=== PATIENT | female | born 1965 | race Caucasian/White ===

== ENCOUNTER 2016-09-21 20:00 | Emergency (ER) | payer BC ==
[~2016-09-21] VITALS: Ht 170.2 cm; Wt 74.8 kg
[~2016-09-21 20:00] MED LIST: FLUO20CA36 PO; IBUP-1482 PO
--- NOTE | 2016-09-21 20:15 | NUR ---
PT BB SELF; AMBULATORY TO ER BED 6 C/O NAUSEA, VOMIT, "VERTIGO" SINCE 1500. PT AOX3 RR EVEN AND UNLABORED. NO SOB NOTED. NAD NOTED. NO NVD AT THIS TIME. PT NOT DIAPHORETIC. PT WAITING FOR MD KIMBROUGH.
--- NOTE | 2016-09-21 20:16 | NUR ---
DR. HERNANDEZ AT BEDSIDE FOR EVAL.
--- NOTE | 2016-09-21 20:20 | NUR ---
URINE COLLECTED. 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
[2016-09-21] MEDS ORDERED: ONDANSETRON 4 MG TAB.RAPDIS ONE ×2 (20:36→22:19)
[2016-09-21] MEDS ORDERED: MECLIZINE HCL 25 MG TABLET ONE (20:36)
--- NOTE | 2016-09-21 20:41 | NUR ---
LAB AT BEDSIDE
[2016-09-21 20:51] LABS: BASOPHILS # (AUTO) 0.1 /CMM (0.0-0.2); EOSINOPHILS # (AUTO) 0.7 /CMM (0.0-0.7); EOSINOPHILS % (AUTO) 11.4 % (0.0-6.0); HEMATOCRIT 40 % (33-45); HEMOGLOBIN 13.3 g/dL (11.5-14.8); LYMPHOCYTES % (AUTO) 33.5 % (20.0-44.0); MEAN CORPUSCULAR HEMOGLOBIN 30 PG (26.0-33.0); MEAN CORPUSCULAR HGB CONC 34 g/dl (31.0-36.0); MEAN CORPUSCULAR VOLUME 88 fL (82-100); MONOCYTES # (AUTO) 0.6 /CMM (0.1-1.30); MONOCYTES % (AUTO) 9.4 % (2.0-12.0); NEUTROPHILS # (AUTO) 2.5 /CMM (1.8-8.9); NEUTROPHILS % (AUTO) 44.7 % (43.0-81.0); PLATELET COUNT (AUTO) 205 /CMM (150-450); RED BLOOD CELL COUNT(AUTO) 4.51 MIL/uL (4.0-5.2); WHITE BLOOD COUNT (AUTO) 5.9 K/uL (4.3-11.0)
[2016-09-21] MEDS ORDERED: MECLIZINE HCL 12.5 MG TABLET PO ONE (21:00)
[2016-09-21] MEDS ORDERED: ONDANSETRON 4 MG TAB.RAPDIS PO ONE (21:00)
[2016-09-21] MEDS ORDERED: diphenhydrAMINE HCL 25 MG CAPSULE PO ONE (21:30)
[2016-09-21] MEDS ORDERED: diphenhydrAMINE HCL 50 MG CAPSULE ONE (21:36)
--- NOTE | 2016-09-21 21:39 | NUR ---
DR. GILMAN SPEAKING TO PT REGARDING POC.
--- NOTE | 2016-09-21 22:23 | NUR ---
Patient discharged to home in stable condition. Written and verbal after care instructions given. Patient verbalizes understanding of instruction. ambulatory with a steady gait
[2016-09-21 22:25] VITALS: BP 147/96
[2016-09-21] MEDS ORDERED: ONDANSETRON 4 MG TAB.RAPDIS SL ONE (22:30)
== END 2016-09-21 22:25 | disposition home or self-care (01) ==
LOC: ER 20:06
DX: R42 Dizziness and giddiness (principal); J45.909 Unspecified asthma, uncomplicated; F31.9 Bipolar disorder, unspecified; Z88.8 Allergy status to other drugs, medicaments and biological substances
CPT/HCPCS: 36415; 84703; 85025; 93005; 99285; A4606; J8597; Q0162 ×2; Q0163; Z7610

== ENCOUNTER 2017-01-20 06:09 | Emergency (ER) | payer SELFPAY ==
[~2017-01-20] VITALS: Ht 170.2 cm; Wt 76.7 kg
[2017-01-20 06:18] VITALS: BP 140/92
[2017-01-20] MEDS ORDERED: KETOROLAC TROMETHAMINE INJ 60 MG/2 ML VIAL IM ONE (06:30)
[2017-01-20] MEDS ORDERED: KETOROLAC TROMETHAMINE INJ 30 MG/ML VIAL ONE (06:31)
== END 2017-01-20 06:43 | disposition home or self-care (01) ==
LOC: ER 06:09
DX: G43.909 Migraine, unspecified, not intractable, without status migrainosus (principal); J45.909 Unspecified asthma, uncomplicated; F31.9 Bipolar disorder, unspecified; Z88.8 Allergy status to other drugs, medicaments and biological substances
CPT/HCPCS: 96372; 99283; A4606; J1885; Z7610

== ENCOUNTER 2017-03-12 12:36 | Emergency (ER) | payer MEDICAID ==
[~2017-03-12] VITALS: Ht 170.2 cm; Wt 80.7 kg
[2017-03-12 12:36] VITALS: BP 146/82
== END 2017-03-12 14:00 | disposition home or self-care (01) ==
LOC: ER 12:37
DX: J02.9 Acute pharyngitis, unspecified (principal); Z88.8 Allergy status to other drugs, medicaments and biological substances; J45.909 Unspecified asthma, uncomplicated
CPT/HCPCS: 99283; A4606; Z7610

== ENCOUNTER 2018-03-03 19:06 | Emergency (ER) | payer MEDICAID, OTHER ==
[~2018-03-03] VITALS: Ht 175.3 cm; Wt 79.4 kg
[2018-03-03 19:06] VITALS: BP 170/105
[~2018-03-03 19:06] MED LIST changes: -IBUP-1482 PO; +IBUP-1957 PO
--- NOTE | 2018-03-03 19:32 | NUR ---
PATIENT HAS ELOPED. ER PA MADE AWARE
== END 2018-03-03 19:34 | disposition left against medical advice (07) ==
LOC: ER 19:12
DX: Z76.0 Encounter for issue of repeat prescription (principal); G40.909 Epilepsy, unspecified, not intractable, without status epilepticus; J45.909 Unspecified asthma, uncomplicated; F31.9 Bipolar disorder, unspecified; Z88.6 Allergy status to analgesic agent; Z88.8 Allergy status to other drugs, medicaments and biological substances
CPT/HCPCS: 99281; A4606; Z7610; Z7502

== ENCOUNTER 2018-03-13 08:40 | Emergency (ER) | payer OTHER ==
[~2018-03-13] VITALS: Ht 170.2 cm; Wt 93.0 kg
--- NOTE | 2018-03-13 08:53 | NUR ---
PATIENT TO ED DIFFUSED ABDOMINAL PAIN, NON RADIATING, 10/10, WORSENING WHEN SITTING DOWN. NO NAUSEA OR VOMITTING,. AFEBRILE. VSS
[2018-03-13] MEDS ORDERED: FAMOTIDINE/PF INJ 20 MG/2 ML VIAL IV ONE ×2 (09:17→09:30)
[2018-03-13] MEDS ORDERED: KETOROLAC TROMETHAMINE INJ 30 MG/ML VIAL IV ONE (09:30)
[2018-03-13] MEDS ORDERED: IV NS 0.9% 1,000 ML BAG IV ONE (09:30)
[2018-03-13 09:41] LABS: BASOPHILS # (AUTO) 0.1 /CMM (0.0-0.2); BASOPHILS % (AUTO) 1.4 % (0.0-2.0); EOSINOPHILS % (AUTO) 10.5 % (0.0-6.0); HEMATOCRIT 42 % (33-45); HEMOGLOBIN 14.3 g/dL (11.5-14.8); LYMPHOCYTES # (AUTO) 1.9 /CMM (0.8-4.8); LYMPHOCYTES % (AUTO) 30.7 % (20.0-44.0); MEAN CORPUSCULAR HEMOGLOBIN 29 PG (26.0-33.0); MEAN CORPUSCULAR HGB CONC 34 g/dl (31.0-36.0); MEAN CORPUSCULAR VOLUME 86 fL (82-100); MONOCYTES # (AUTO) 0.7 /CMM (0.1-1.30); MONOCYTES % (AUTO) 11.9 % (2.0-12.0); NEUTROPHILS # (AUTO) 2.8 /CMM (1.8-8.9); NEUTROPHILS % (AUTO) 45.5 % (43.0-81.0); PLATELET COUNT (AUTO) 249 /CMM (150-450); RDW COEFFICIENT OF VARIATION 12.1 (11.5-15.0); RED BLOOD CELL COUNT(AUTO) 4.94 MIL/uL (4.0-5.2); WHITE BLOOD COUNT (AUTO) 6.1 K/uL (4.3-11.0)
[2018-03-13] MEDS ORDERED: KETOROLAC TROMETHAMINE INJ 30 MG/ML VIAL ONE (09:47)
[2018-03-13 09:51] LABS: CALCIUM, SERUM 8.9 mg/dL (8.5-10.1); CREATININE 0.8 mg/dL (0.6-1.3); POTASSIUM 3.5 mmol/L (3.5-5.1)
[2018-03-13 09:58] LABS: ALBUMIN 3.7 g/dL (3.4-5.0); BILIRUBIN,DIRECT 0.1 mg/dL (0.0-0.2); BILIRUBIN,TOTAL 0.3 mg/dL (0.2-1.0); TOTAL PROTEIN, SERUM 7.1 g/dL (6.4-8.2)
[2018-03-13] MEDS ORDERED: MAGNESIUM CITRATE 296 ML BOTTLE PO ONE (12:30)
[2018-03-13] MEDS ORDERED: MAGNESIUM CITRATE 296 ML BOTTLE ONE (12:35)
[2018-03-13 12:46] VITALS: BP 141/74
--- NOTE | 2018-03-13 12:46 | NUR ---
PT. VERBALIZED UNDERSTANDING OF AFTERCARE INSTRUCTIONS.Patient discharged to home in stable condition. Written and verbal after care instructions given. Patient verbalizes understanding of instruction.
== END 2018-03-13 12:41 | disposition home or self-care (01) ==
LOC: ER 08:41
DX: R10.84 Generalized abdominal pain (principal); G43.909 Migraine, unspecified, not intractable, without status migrainosus; J45.909 Unspecified asthma, uncomplicated; F31.9 Bipolar disorder, unspecified; Z88.8 Allergy status to other drugs, medicaments and biological substances
CPT/HCPCS: 36415; 71045; 74021; 76700; 80048; 80076; 83690; 84702; 85025; 96374; 96375; 99285; A4606; J1885; J3490; J7030; Z7610